=== PATIENT | female | born 1955 | race African-American/Black ===

== ENCOUNTER 2017-08-02 11:24 | Day surgery (SDC) | payer OTHER ==
[2017-08-02] VITALS (11 sets, daily range): BP systolic 92–134; BP diastolic 62–84; PULSE 88–122; RESP 14–26; Ht 162.6 cm; Wt 48.8 kg
[~2017-08-02] VITALS: Ht 162.6 cm; Wt 48.8 kg
[~2017-08-02 11:24] MED LIST: NO HOME MEDS
--- NOTE | 2017-08-02 13:29 | HPN ---
Date/Time of Note Date/Time of Note DATE: 08/02/17 TIME: 13:29 Interval H&P Admission Note Pt. seen H&P reviewed: No system changes RUBÉN WOODSON MD Aug 02, 2017 13:29
[2017-08-02] MEDS ORDERED: PROPOFOL 20 ML ONE (13:44)
[2017-08-02] MEDS ORDERED: LIDOCAINE 2% (SDV) 5 ML INJ ONE (13:44)
[2017-08-02] MEDS ORDERED: MIDAZOLAM 1 MG/ML 2 ML INJ ONE (13:44)
[2017-08-02] MEDS ORDERED: FENTAnyl 50 MCG/ML VIAL ONE (14:04)
[2017-08-02] MEDS ORDERED: DEXAMETHASONE 4 MG/ML 1 ML INJ ONE (14:14)
[2017-08-02] MEDS ORDERED: ONDANSETRON 4 MG INJ ONE (14:14)
[2017-08-02] MEDS ORDERED: MEPERIDINE 100 MG INJ ONE (14:46)
--- NOTE | 2017-08-02 14:54 | SIPON ---
Date/Time of Note Date/Time of Note DATE: 08/02/17 TIME: 14:49 Operative Report Preoperative Diagnosis endometrial hyperplasis Postoperative Diagnosis see path Operation/Procedure Performed attempted hysteroscopy endocervical curettage Surgeon see signature line anesthesiologist assistant certified laura from true clear Anesthesia: general Estimated blood loss: 50 - 100 ml's Transfusion Required none Specimen ECC Grafts/Implants none Complications cervical laceration RUBÉN WOODSON MD Aug 02, 2017 14:54
[2017-08-02] MEDS ORDERED: hydrALAzine 20 MG INJ IV PRN (15:30)
[2017-08-02] MEDS ORDERED: FENTAnyl 50 MCG/ML VIAL IV PRN ×3 (15:30)
[2017-08-02] MEDS ORDERED: EPHEDrine SULFATE 50 MG/5 ML SYG IV PRN (15:30)
[2017-08-02] MEDS ORDERED: OXYCODONE/ACETAMINOPHEN (5/325) TAB PO PRN ×2 (15:30)
[2017-08-02] MEDS ORDERED: ONDANSETRON 4 MG INJ IV PRN (15:30)
--- NOTE | 2017-08-02 19:14 | PD.PPDC ---
[employer] Discharge Instruction Diagnosis Final Diagnosis: endometrial,hyperplasia Condition Patient Condition: Stable Activity/Restrictions Activity: May Shower Restrictions: No Sexual Activity Nothing in the Vagina No [place] No Tampons, douche Follow-up Follow-up with Physician: 2, Week/Weeks Return to clinic for [employer] Instructions: Fever greater than 101 [place] Worsening abdominal pain Excessive Vaginal Bleeding More than 2 pads per hour Unable to tolerate diet RUBÉN WOODSON MD Aug 02, 2017 19:14
--- NOTE | 2017-08-07 15:50 | OPR ---
DATE OF OPERATION: 08/02/2017 PREOPERATIVE DIAGNOSIS: Postmenopausal bleeding with hyperplasia endometrium. POSTOPERATIVE DIAGNOSIS: Postmenopausal bleeding with hyperplasia endometrium. OPERATION PERFORMED: Hysteroscope was attempted and endocervical curettage and endometrial curettage . ANESTHESIA: General. ANESTHESIOLOGIST: Defer to the chart. SURGEON: Greg Ramirez MD ESTIMATED BLOOD LOSS: 25 mL. PROCEDURE: Under the proper induction of general anesthesia, the patient was placed in dorsal litho zeferino position. Perineal area and vagina wall was prepped and draped in usual aseptic manner. On in spection, external genitalia revealed no gross abnormality. Bimanual examination revealed uterus is relatively soft as a uterus, small in size. There was no palpable adnexal pathology. Ky ghted speculum introduced and the cervix identified, which appeared to be parous and clear. The ant erior lip of the cervix was grasped with a single-toothed tenaculum and endocervical curettage was d one with obtaining scanty tissue which was sent to pathology. Then cavity was sounded which was 6 c m in depth, relatively short and os dilated slightly enough to insert the hysteroscope, which was in serted. During the insertion, there was bleeding noted which was removed and bleeding was pumped fr om the 9 o'clock direction pumping which was actually more than expected. At this point, the proced ure was stopped and the suture using 0 chromic catgut with a CT-2 placed on the 9 o'clock direction with a [id number] manner. That actually stopped the bleeding completely so there must be a lac eration on the cervix while inserting the hysteroscope and we attempted the insertion. After the ble eding stopped, which actually increased the fluid deficit, more than it is supposed to be and we per formed a curettage with a conventional method without hysteroscope done, but not much tissue obtaine d. The procedure ended and normal hysteroscope tried because of the increased fluid deficit but the re was no external bleeding from the cervix and the vital signs were stable. The patient was sent t o the recovery room in stable condition. Estimated blood loss at 25 mL. Sponge count and the instrument counts were correct. Dictated By: GREG OLIVIER/KIMBERLY Conf#: [id number] DID#: [id number]
== END 2017-08-02 19:23 | disposition home or self-care (01) ==
LOC: SDS 11:24
PROVIDERS: ATTEND Obstetrics & Gynecology
DX: N85.00 Endometrial hyperplasia, unspecified (principal); N95.0 Postmenopausal bleeding; F12.929 Cannabis use, unspecified with intoxication, unspecified
CPT/HCPCS: 58558; 88305; J1100; J2175; J2250; J2405; J3010; Z7512; Z7610